=== PATIENT | male | born 1955 | race Caucasian/White ===

== ENCOUNTER 2020-07-11 22:45 | Emergency (ER) | payer OTHER ==
[2020-07-11] MEDS ORDERED: Sulfameth/Trimethoprim DS 800-160mg TAB ONE (23:27)
== END 2020-07-11 23:38 | disposition home or self-care (01) ==
LOC: MADERS 22:45
DX: T81.31XA Disruption of external operation (surgical) wound, not elsewhere classified, initial encounter (principal); K21.9 Gastro-esophageal reflux disease without esophagitis
CPT/HCPCS: 87070; 87077; 87186; 87205; 99283

== ENCOUNTER 2022-05-28 17:48 | Emergency (ER) | payer OTHER ==
[2022-05-28] MEDS ORDERED: predniSONE 20 MG TAB ONE (18:06)
[2022-05-28] MEDS ORDERED: diphenhydrAMINE 25 MG CAP ONE (18:06)
[2022-05-28] MEDS ORDERED: Famotidine 20 MG TAB ONE (18:06)
== END 2022-05-28 19:05 | disposition home or self-care (01) ==
LOC: MADERS 17:48
DX: L50.0 Allergic urticaria (principal); K21.9 Gastro-esophageal reflux disease without esophagitis
CPT/HCPCS: J7512; J7611

== ENCOUNTER 2025-04-15 11:09 | Emergency (ER) | payer MEDICARE, OTHER ==
[2025-04-15] MEDS ORDERED: Tobramycin 0.3% Ophth Susp 5 ml Bottle ONE (11:43)
== END 2025-04-15 11:57 | disposition home or self-care (01) ==
LOC: MADERS 11:09
DX: S05.01XA Injury of conjunctiva and corneal abrasion without foreign body, right eye, initial encounter (principal); H10.9 Unspecified conjunctivitis; B96.89 Other specified bacterial agents as the cause of diseases classified elsewhere; X58.XXXA Exposure to other specified factors, initial encounter
CPT/HCPCS: 99283